=== PATIENT | female | born 1940 | race Caucasian/White ===

== ENCOUNTER 2016-09-30 09:50 | Emergency (ER) | payer OTHER ==
[~2016-09-30] VITALS: Ht 157.5 cm; Wt 73.0 kg
[~2016-09-30 09:50] MED LIST: AMARYL4 MG PO; AMLODIPINE-BEN1 EACH PO; APAP500 PO; ASPIRIN EC325 M1 PO; B-12500 MC1 PO; COLACE100 MG PO; ETODOLAC 400 M400 M1 PO; FENOFIBRATE145 M1 PO; GLUCOPHAGE500 MG PO; IBUPROFEN 600600 M1 PO; IRON325 PO; LIPITOR40 MG PO; NORCO 5-325 TA1 EACH PO; POTASSIUM20 PO; VITAMIN D3400 UNI2 PO
[2016-09-30] MEDS ORDERED: NAPROSYN500 MG PO (12:35)
[2016-09-30 12:44] VITALS: BP 171/74
== END 2016-09-30 12:45 | disposition home or self-care (01) ==
LOC: ER 09:50
DX: S86.912A Strain of unspecified muscle(s) and tendon(s) at lower leg level, left leg, initial encounter (principal); M17.0 Bilateral primary osteoarthritis of knee; I10 Essential (primary) hypertension; E11.9 Type 2 diabetes mellitus without complications; Z86.59 Personal history of other mental and behavioral disorders; Z98.890 Other specified postprocedural states; X58.XXXA Exposure to other specified factors, initial encounter; Y93.89 Activity, other specified; Y92.89 Other specified places as the place of occurrence of the external cause; Y99.8 Other external cause status

== ENCOUNTER 2017-04-02 20:51 | Emergency (ER) | payer OTHER ==
[~2017-04-02] VITALS: Ht 157.5 cm; Wt 68.5 kg
[~2017-04-02 20:51] MED LIST changes: +NAPROSYN500 MG PO
[2017-04-02 20:57] VITALS: BP 198/90
== END 2017-04-02 21:51 | disposition home or self-care (01) ==
LOC: ER 20:51
DX: S99.922A Unspecified injury of left foot, initial encounter (principal); M77.52 Other enthesopathy of left foot and ankle; E11.9 Type 2 diabetes mellitus without complications; I10 Essential (primary) hypertension; Z88.1 Allergy status to other antibiotic agents; X58.XXXA Exposure to other specified factors, initial encounter; Y93.89 Activity, other specified; Y92.89 Other specified places as the place of occurrence of the external cause; Y99.8 Other external cause status

== ENCOUNTER 2018-02-15 05:37 | Emergency (ER) | payer OTHER ==
[~2018-02-15] VITALS: Ht 154.9 cm; Wt 63.5 kg
[2018-02-15] MEDS ORDERED: FOSAMAX 70 MG T70 MG PO (05:49)
[2018-02-15] MEDS ORDERED: SYNTHROID50 MCG PO (05:50)
[2018-02-15] MEDS ORDERED: ALDACTONE100 MG PO (05:50)
[2018-02-15] MEDS ORDERED: HYDROCHLOROTHIA25 M2 PO (05:50)
[2018-02-15] MEDS ORDERED: TRAMADOL 50 MG50 MG PO (07:06)
[2018-02-15 08:12] VITALS: BP 164/78
== END 2018-02-15 08:20 | disposition home or self-care (01) ==
LOC: ER 05:37
DX: S62.615A Displaced fracture of proximal phalanx of left ring finger, initial encounter for closed fracture (principal); I10 Essential (primary) hypertension; E11.9 Type 2 diabetes mellitus without complications; Z88.2 Allergy status to sulfonamides; Z90.89 Acquired absence of other organs; W18.39XA Other fall on same level, initial encounter; Y92.89 Other specified places as the place of occurrence of the external cause; Y93.89 Activity, other specified; Y99.8 Other external cause status

== ENCOUNTER 2018-04-23 03:12 | Emergency (ER) | payer OTHER ==
[~2018-04-23] VITALS: Ht 157.5 cm; Wt 64.0 kg
[~2018-04-23 03:12] MED LIST changes: +ALDACTONE100 MG PO; +FOSAMAX 70 MG T70 MG PO; +HYDROCHLOROTHIA25 M2 PO; +SYNTHROID50 MCG PO; +TRAMADOL 50 MG50 MG PO
[2018-04-23 03:25] VITALS: BP 162/86
== END 2018-04-23 08:30 | disposition home or self-care (01) ==
LOC: ER 03:12
DX: M79.605 Pain in left leg (principal); I10 Essential (primary) hypertension; E11.9 Type 2 diabetes mellitus without complications; Z88.2 Allergy status to sulfonamides